=== PATIENT | male | born 1950 | race Caucasian/White ===

== ENCOUNTER 2021-09-17 13:41 | Inpatient (IN) | payer MEDICARE, OTHER, SELFPAY ==
[2021-09-17] MEDS ORDERED: Iopamidol 300 61% 100 ML VIAL FS ONE (14:11)
[2021-09-17] MEDS ORDERED: Ondansetron PF 4 MG/2 ML Vial ONE ×2 (14:25→20:24)
[2021-09-17] MEDS ORDERED: Morphine 4 MG/ML VIAL ONE (15:25)
[2021-09-17] MEDS ORDERED: Metoclopramide HCl 10 MG/2 ML VIAL ONE (15:26)
[2021-09-17] MEDS ORDERED: Ketorolac Tromethamine 30 MG/ML VIAL ONE ×2 (15:26→22:06)
[2021-09-17 15:59] LABS: Hemoglobin 14.7 g/dL (13.5-17.5); Mean Corpuscular HGB CONC 35.4 g/dL (32.0-36.0); Mean Corpuscular Volume 90.4 fl (81.2-95.1); Mean Platelet Volume 9.9 fl (7.4-10.4); Platelet Count 156 10x3/uL (150-450); RBC Distribution Width 13.3 % (11.5-14.5); Red Blood Cell (RBC) Count 4.59 10x6/uL (4.32-5.72); White Blood Cell (WBC) Count 6.5 10x3/uL (3.5-10.5)
[2021-09-17 16:00] LABS: MDiff Complete? YES
[2021-09-17 16:20] LABS: ALT (SGPT) 44 U/L (8-55); AST (SGOT) 61 U/L (5-34); Albumin 4.1 g/dL (3.4-4.8); Alkaline Phosphatase 66 U/L (40-110); Anion Gap 15 mmol/L (10-20); BUN (Urea Nitrogen) 13 mg/dL (8.4-25.7); Bilirubin, Total 0.6 mg/dL (0.2-1.2); Calc. Creatinine Clearance 0 mL/min (70-130); Calcium 9.6 mg/dL (7.8-10.44); Carbon Dioxide 25 mmol/L (23-31); Chloride 101 mmol/L (98-107); Globulin 3.1 g/dL (2.4-3.5); Glucose 100 mg/dL (80-115); Potassium 3.2 mmol/L (3.5-5.1); Protein, Total 7.2 g/dL (5.8-8.1); Sodium 138 mmol/L (136-145)
[2021-09-17] MEDS ORDERED: Dicyclomine 20 MG/2 ML VIAL ONE (16:38)
[2021-09-17 16:39] LABS: Bilirubin Neg (Negative); Blood, Urine 250 (Negative); Clarity Clear (Clear); Glucose, Urine (Dipstick) Normal (Negative); Ketone, Urine 50 mg/dL (Negative); Leukocyte Negative (Negative); Nitrite Negative (Negative); Protein, Urine (Dipstick) 30 mg/dl (Neg-Trace); Specific Gravity, Urine 1.015 (1.002-1.036); Urobilinogen Normal mg/dL (Less than 2); pH, Urine 6.5 (5.0-9.0)
[2021-09-17 16:46] LABS: Bacteria/HPF None Seen HPF (None Seen); Squamous Epithelial 0-3 HPF (0-3); WBC/HPF 0-3 HPF (0-3)
[2021-09-17 16:50] LABS: Eosinophils 1 % (0-10)
[2021-09-17 16:53] LABS: Lymphocytes 20 % (21-51); Monocytes 17 % (0-10); Neutrophil 61 % (42-75)
[2021-09-17 16:54] LABS: Vacuoles SLIGHT
[2021-09-17] MEDS ORDERED: Simethicone Chewable 80 MG TAB PO SCH (17:00)
[2021-09-17] MEDS ORDERED: Bupivacaine PF 0.5% 30 ML VIAL ONE (19:58)
[2021-09-17] MEDS ORDERED: CEFAZOLIN 1 GM VIAL ONE (19:59)
[2021-09-17] MEDS ORDERED: EPINEPHrine 1 MG/ML AMP ONE (20:00)
[2021-09-17 20:01] LABS: SARS-CoV-2 NAA Rapid Test DETECTED (NotDetected)
[2021-09-17] MEDS ORDERED: Fentanyl 100 MCG/2 ML VIAL ONE ×2 (20:23→21:58)
[2021-09-17] MEDS ORDERED: PROPOFOL 20 ML ONE (20:23)
[2021-09-17] MEDS ORDERED: Lidocaine 1% PF 5 ML VIAL ONE (20:24)
[2021-09-17] MEDS ORDERED: Dexamethasone 20 MG/5 ML VIAL ONE (20:26)
[2021-09-17] MEDS ORDERED: Succinylcholine 200 MG/10 ml SYRINGE FS ONE (20:26)
[2021-09-17] MEDS ORDERED: Water For Injection,Sterile 20 ML ONE (20:29)
[2021-09-17] MEDS ORDERED: Glycopyrrolate 0.2 MG/ML 5 ML SYRINGE ONE (22:05)
[2021-09-17] MEDS ORDERED: Ondansetron PF 4 MG/2 ML Vial IVP PRN (22:33)
[2021-09-17] MEDS ORDERED: Morphine 2 MG/ML VIAL SLOW IVP PRN (22:37)
[2021-09-17] MEDS ORDERED: diphenhydrAMINE 50 MG/ML VIAL IVP PRN (22:38)
[2021-09-17] MEDS ORDERED: Piperacillin/Tazobactam 3.375 GM in Sodium Chloride 0.9% 100 ML IVPB SCH (22:45)
[2021-09-17] MEDS: Lactated Ringer's 1,000 ML IV SCH (23:22)
[2021-09-17] MEDS: Ketorolac Tromethamine 30 MG/ML VIAL IVP SCH (23:23)
[2021-09-18] MEDS: Morphine 4 MG/ML VIAL SLOW IVP PRN ×3 (01:35→21:08)
[2021-09-18 04:55] LABS: Anion Gap 20 mmol/L (10-20); BUN (Urea Nitrogen) 10 mg/dL (8.4-25.7); Calc. Creatinine Clearance 125 mL/min (70-130); Calcium 8.4 mg/dL (7.8-10.44); Carbon Dioxide 20 mmol/L (23-31); Chloride 106 mmol/L (98-107); Glucose 115 mg/dL (80-115); Potassium 3.7 mmol/L (3.5-5.1); Sodium 142 mmol/L (136-145)
[2021-09-18] MEDS: Piperacillin/Tazobactam 3.375 GM in Sodium Chloride 0.9% 100 ML IVPB SCH ×3 (06:01→21:06)
[2021-09-18] MEDS: Ketorolac Tromethamine 30 MG/ML VIAL IVP SCH ×3 (06:01→17:13)
[2021-09-18] MEDS: Lactated Ringer's 1,000 ML IV SCH ×3 (07:54→21:06)
[2021-09-18] MEDS: Enoxaparin Sodium 40 MG/0.4 ML SYRINGE SC SCH (08:48)
[2021-09-18] MEDS ORDERED: Lactated Ringer's 1,000 ML IV SCH (09:00)
[2021-09-18] MEDS: Hydroxychloroquine Sulfate 200 MG TAB PO SCH ×2 (09:32→21:07)
[2021-09-18] MEDS ORDERED: Dexamethasone 0.5 MG/5 ML UDCUP PO SCH (17:00)
[2021-09-18] MEDS: Gabapentin 300 MG CAP PO SCH (21:07)
[2021-09-19] MEDS: Ketorolac Tromethamine 30 MG/ML VIAL IVP SCH ×4 (00:36→17:58)
[2021-09-19 04:43] LABS: Anion Gap 14 mmol/L (10-20); BUN (Urea Nitrogen) 18 mg/dL (8.4-25.7); Calc. Creatinine Clearance 105 mL/min (70-130); Carbon Dioxide 27 mmol/L (23-31); Chloride 102 mmol/L (98-107); Glucose 130 mg/dL (80-115); Magnesium 1.8 mg/dL (1.6-2.6); Phosphorus 2.9 mg/dL (2.3-4.7); Potassium 3.8 mmol/L (3.5-5.1); Sodium 139 mmol/L (136-145)
[2021-09-19 05:20] VITALS: BMI 25.7
[2021-09-19] MEDS: Piperacillin/Tazobactam 3.375 GM in Sodium Chloride 0.9% 100 ML IVPB SCH ×3 (06:23→21:40)
[2021-09-19] MEDS: Lactated Ringer's 1,000 ML IV SCH (06:39)
[2021-09-19] MEDS ORDERED: 1/2 NS w/KCL 20 mEq 1,000 ML IV SCH (08:30)
[2021-09-19] MEDS: Hydroxychloroquine Sulfate 200 MG TAB PO SCH ×2 (08:54→21:39)
[2021-09-19] MEDS: Enoxaparin Sodium 40 MG/0.4 ML SYRINGE SC SCH (08:54)
[2021-09-19] MEDS: 1/2 NS w/KCL 20 mEq 1,000 ML IV SCH ×2 (08:54→21:40)
[2021-09-19 10:25] LABS: SARS-CoV-2 NAA Rapid Test DETECTED (NotDetected)
[2021-09-19] MEDS: Gabapentin 300 MG CAP PO SCH (21:39)
[2021-09-19] MEDS: Morphine 4 MG/ML VIAL SLOW IVP PRN (21:44)
[2021-09-20] MEDS: Ketorolac Tromethamine 30 MG/ML VIAL IVP SCH ×2 (00:42→05:33)
[2021-09-20] MEDS: Piperacillin/Tazobactam 3.375 GM in Sodium Chloride 0.9% 100 ML IVPB SCH (05:34)
[2021-09-20] MEDS: Hydroxychloroquine Sulfate 200 MG TAB PO SCH (08:11)
[2021-09-20] MEDS: 1/2 NS w/KCL 20 mEq 1,000 ML IV SCH (08:11)
[2021-09-20] MEDS: Enoxaparin Sodium 40 MG/0.4 ML SYRINGE SC SCH (08:11)
[2021-09-20 11:32] VITALS: TEMP 98.3
[2021-09-20 12:20] VITALS: BP 143/89
== END 2021-09-20 13:16 | disposition home or self-care (01) | DRG 329 ==
LOC: CSHERS 13:41 → CSHICU 23:01 → CSHTELE 09-18 10:17
PROVIDERS: ADMIT Surgery; ATTEND Surgery
PROC: 0DJD4ZZ Inspection of Lower Intestinal Tract, Percutaneous Endoscopic Approach (ICD-10-PCS; principal; 2021-09-17)
PROC: 0DQ80ZZ Repair Small Intestine, Open Approach (ICD-10-PCS; 2021-09-17)
DX: K56.2 Volvulus (principal); U07.1 COVID-19; I73.9 Peripheral vascular disease, unspecified; K66.0 Peritoneal adhesions (postprocedural) (postinfection); M06.9 Rheumatoid arthritis, unspecified; E78.00 Pure hypercholesterolemia, unspecified; Z88.2 Allergy status to sulfonamides; Z87.891 Personal history of nicotine dependence; Z79.899 Other long term (current) drug therapy; Z79.82 Long term (current) use of aspirin; Z98.1 Arthrodesis status; Z98.890 Other specified postprocedural states; Z72.89 Other problems related to lifestyle; Z90.49 Acquired absence of other specified parts of digestive tract
CPT/HCPCS: 36415; 74177; 80048; 80053; 81003; 81015; 83605; 83690; 83735; 84100; 85025; C1765; J0171; J0500; J0690; J1100; J1650; J1885; J2270; J2405; J2543; J2704; J2765; J3010; J3480; J3490; J7120; J8540; Q9967; S0020; U0002

== ENCOUNTER 2022-04-22 08:06 | Outpatient (CLI) | payer MEDICARE | END 2022-04-22 08:07 | disposition home or self-care (01) | LOC: CSHWCC 08:06 | PROVIDERS: ATTEND Nurse Practitioner Family | DX: I87.313 Chronic venous hypertension (idiopathic) with ulcer of bilateral lower extremity (principal); L97.829 Non-pressure chronic ulcer of other part of left lower leg with unspecified severity; L97.819 Non-pressure chronic ulcer of other part of right lower leg with unspecified severity; R60.0 Localized edema ==

== ENCOUNTER 2022-05-06 08:24 | Outpatient (CLI) | payer MEDICARE | END 2022-05-06 08:25 | disposition home or self-care (01) | LOC: CSHWCC 08:24 | PROVIDERS: ATTEND Nurse Practitioner Family | DX: I87.312 Chronic venous hypertension (idiopathic) with ulcer of left lower extremity (principal); L97.829 Non-pressure chronic ulcer of other part of left lower leg with unspecified severity; I87.311 Chronic venous hypertension (idiopathic) with ulcer of right lower extremity; L97.819 Non-pressure chronic ulcer of other part of right lower leg with unspecified severity; R60.0 Localized edema | CPT/HCPCS: 99213; G0463 ==

== ENCOUNTER 2022-05-20 08:18 | Outpatient (CLI) | payer MEDICARE | END 2022-05-20 08:19 | disposition home or self-care (01) | LOC: CSHWCC 08:18 | PROVIDERS: ATTEND Nurse Practitioner Family | DX: I87.312 Chronic venous hypertension (idiopathic) with ulcer of left lower extremity (principal); L97.829 Non-pressure chronic ulcer of other part of left lower leg with unspecified severity; I87.311 Chronic venous hypertension (idiopathic) with ulcer of right lower extremity; L97.819 Non-pressure chronic ulcer of other part of right lower leg with unspecified severity; R60.0 Localized edema ==

== ENCOUNTER 2022-06-03 08:09 | Outpatient (CLI) | payer MEDICARE | END 2022-06-03 08:10 | disposition home or self-care (01) | LOC: CSHWCC 08:09 | PROVIDERS: ATTEND Nurse Practitioner Family | DX: I87.312 Chronic venous hypertension (idiopathic) with ulcer of left lower extremity (principal); L97.829 Non-pressure chronic ulcer of other part of left lower leg with unspecified severity; I87.311 Chronic venous hypertension (idiopathic) with ulcer of right lower extremity; L97.819 Non-pressure chronic ulcer of other part of right lower leg with unspecified severity; R60.0 Localized edema ==

== ENCOUNTER 2022-06-10 08:10 | Outpatient (CLI) | payer MEDICARE | END 2022-06-10 08:11 | disposition home or self-care (01) | LOC: CSHWCC 08:10 | PROVIDERS: ATTEND Nurse Practitioner Family | DX: I87.313 Chronic venous hypertension (idiopathic) with ulcer of bilateral lower extremity (principal); L97.819 Non-pressure chronic ulcer of other part of right lower leg with unspecified severity; L97.829 Non-pressure chronic ulcer of other part of left lower leg with unspecified severity; R60.0 Localized edema | CPT/HCPCS: 97139; G0463; 99213 ==

== ENCOUNTER 2022-06-24 13:02 | Outpatient (CLI) | payer MEDICARE | END 2022-06-24 13:03 | disposition home or self-care (01) | LOC: CSHWCC 13:02 | PROVIDERS: ATTEND Nurse Practitioner Family | DX: I87.313 Chronic venous hypertension (idiopathic) with ulcer of bilateral lower extremity (principal); L97.819 Non-pressure chronic ulcer of other part of right lower leg with unspecified severity; L97.829 Non-pressure chronic ulcer of other part of left lower leg with unspecified severity; R60.0 Localized edema | CPT/HCPCS: 97139; G0463; 99214 ==

== ENCOUNTER 2022-07-08 10:18 | Outpatient (CLI) | payer MEDICARE | END 2022-07-08 10:19 | disposition home or self-care (01) | LOC: CSHWCC 10:18 | PROVIDERS: ATTEND Nurse Practitioner Family | DX: I87.313 Chronic venous hypertension (idiopathic) with ulcer of bilateral lower extremity (principal); L97.819 Non-pressure chronic ulcer of other part of right lower leg with unspecified severity; L97.829 Non-pressure chronic ulcer of other part of left lower leg with unspecified severity ==

== ENCOUNTER 2022-07-15 15:14 | Outpatient (CLI) | payer MEDICARE | END 2022-07-15 15:15 | disposition home or self-care (01) | LOC: CSHWCC 15:14 | PROVIDERS: ATTEND Nurse Practitioner Family | DX: I87.313 Chronic venous hypertension (idiopathic) with ulcer of bilateral lower extremity (principal); L97.819 Non-pressure chronic ulcer of other part of right lower leg with unspecified severity; L97.829 Non-pressure chronic ulcer of other part of left lower leg with unspecified severity; R60.0 Localized edema ==

== ENCOUNTER 2022-07-28 08:05 | Outpatient (CLI) | payer MEDICARE | END 2022-07-28 08:06 | disposition home or self-care (01) | LOC: CSHWCC 08:05 | PROVIDERS: ATTEND Nurse Practitioner Family | DX: I87.313 Chronic venous hypertension (idiopathic) with ulcer of bilateral lower extremity (principal); L97.829 Non-pressure chronic ulcer of other part of left lower leg with unspecified severity; L97.819 Non-pressure chronic ulcer of other part of right lower leg with unspecified severity; R60.0 Localized edema | CPT/HCPCS: 29581 ==

== ENCOUNTER 2022-08-11 08:08 | Outpatient (CLI) | payer MEDICARE | END 2022-08-11 08:09 | disposition home or self-care (01) | LOC: CSHWCC 08:08 | PROVIDERS: ATTEND Nurse Practitioner Family | DX: I87.312 Chronic venous hypertension (idiopathic) with ulcer of left lower extremity (principal); L97.829 Non-pressure chronic ulcer of other part of left lower leg with unspecified severity; R60.0 Localized edema | CPT/HCPCS: 29581; 99213; G0463 ==

== ENCOUNTER 2022-09-02 09:14 | Outpatient (CLI) | payer MEDICARE | END 2022-09-02 09:15 | disposition home or self-care (01) | LOC: CSHWCC 09:14 | PROVIDERS: ATTEND Nurse Practitioner Family | DX: I87.313 Chronic venous hypertension (idiopathic) with ulcer of bilateral lower extremity (principal); L97.819 Non-pressure chronic ulcer of other part of right lower leg with unspecified severity; L97.829 Non-pressure chronic ulcer of other part of left lower leg with unspecified severity | CPT/HCPCS: 15271; 29581 ×2; 97139; Q4101 ×2 ==

== ENCOUNTER 2022-09-06 13:03 | Outpatient (CLI) | payer MEDICARE | END 2022-09-06 13:04 | disposition home or self-care (01) | LOC: CSHWCC 13:03 | PROVIDERS: ATTEND Nurse Practitioner Family | DX: I87.313 Chronic venous hypertension (idiopathic) with ulcer of bilateral lower extremity (principal); L97.819 Non-pressure chronic ulcer of other part of right lower leg with unspecified severity; L97.829 Non-pressure chronic ulcer of other part of left lower leg with unspecified severity; R60.0 Localized edema | CPT/HCPCS: 29581 ==

== ENCOUNTER 2022-09-09 09:18 | Outpatient (CLI) | payer MEDICARE | END 2022-09-09 09:19 | disposition home or self-care (01) | LOC: CSHWCC 09:18 | PROVIDERS: ATTEND Nurse Practitioner Family | DX: I87.312 Chronic venous hypertension (idiopathic) with ulcer of left lower extremity (principal); L97.829 Non-pressure chronic ulcer of other part of left lower leg with unspecified severity; I87.311 Chronic venous hypertension (idiopathic) with ulcer of right lower extremity; L97.819 Non-pressure chronic ulcer of other part of right lower leg with unspecified severity; R60.0 Localized edema | CPT/HCPCS: 97139; G0463; 99214 ==

== ENCOUNTER 2022-09-22 08:03 | Outpatient (CLI) | payer MEDICARE | END 2022-09-22 08:04 | disposition home or self-care (01) | LOC: CSHWCC 08:03 | PROVIDERS: ATTEND Nurse Practitioner Family | DX: I87.313 Chronic venous hypertension (idiopathic) with ulcer of bilateral lower extremity (principal); L97.829 Non-pressure chronic ulcer of other part of left lower leg with unspecified severity; L97.819 Non-pressure chronic ulcer of other part of right lower leg with unspecified severity; R60.0 Localized edema | CPT/HCPCS: 97139; G0463; 99213 ==

== ENCOUNTER 2022-10-06 08:05 | Outpatient (CLI) | payer MEDICARE | END 2022-10-06 08:06 | disposition home or self-care (01) | LOC: CSHWCC 08:05 | PROVIDERS: ATTEND Nurse Practitioner Family | DX: I87.312 Chronic venous hypertension (idiopathic) with ulcer of left lower extremity (principal); L97.829 Non-pressure chronic ulcer of other part of left lower leg with unspecified severity; I87.311 Chronic venous hypertension (idiopathic) with ulcer of right lower extremity; L97.819 Non-pressure chronic ulcer of other part of right lower leg with unspecified severity; R60.0 Localized edema | CPT/HCPCS: 97139; G0463; 17250; 99211 ==

== ENCOUNTER 2022-10-13 08:06 | Outpatient (CLI) | payer MEDICARE | END 2022-10-13 08:07 | disposition home or self-care (01) | LOC: CSHWCC 08:06 | PROVIDERS: ATTEND Nurse Practitioner Family | DX: I87.313 Chronic venous hypertension (idiopathic) with ulcer of bilateral lower extremity (principal); L97.819 Non-pressure chronic ulcer of other part of right lower leg with unspecified severity; L97.829 Non-pressure chronic ulcer of other part of left lower leg with unspecified severity | CPT/HCPCS: 97139; G0463; 99213 ==

== ENCOUNTER 2022-11-03 08:06 | Outpatient (CLI) | payer MEDICARE | END 2022-11-03 08:07 | disposition home or self-care (01) | LOC: CSHWCC 08:06 | PROVIDERS: ATTEND Nurse Practitioner Family | DX: I87.313 Chronic venous hypertension (idiopathic) with ulcer of bilateral lower extremity (principal); L97.819 Non-pressure chronic ulcer of other part of right lower leg with unspecified severity; L97.829 Non-pressure chronic ulcer of other part of left lower leg with unspecified severity; R60.0 Localized edema | CPT/HCPCS: 99213; G0463 ==

== ENCOUNTER 2022-11-17 11:09 | Outpatient (CLI) | payer MEDICARE | END 2022-11-17 11:10 | disposition home or self-care (01) | LOC: CSHWCC 11:09 | PROVIDERS: ATTEND Nurse Practitioner Family | DX: I87.313 Chronic venous hypertension (idiopathic) with ulcer of bilateral lower extremity (principal); L97.819 Non-pressure chronic ulcer of other part of right lower leg with unspecified severity; L97.829 Non-pressure chronic ulcer of other part of left lower leg with unspecified severity; R60.0 Localized edema | CPT/HCPCS: 97602 ==

== ENCOUNTER 2022-12-01 08:18 | Outpatient (CLI) | payer MEDICARE | END 2022-12-01 08:19 | disposition home or self-care (01) | LOC: CSHWCC 08:18 | PROVIDERS: ATTEND Nurse Practitioner Family | DX: I87.313 Chronic venous hypertension (idiopathic) with ulcer of bilateral lower extremity (principal); L97.829 Non-pressure chronic ulcer of other part of left lower leg with unspecified severity; L97.819 Non-pressure chronic ulcer of other part of right lower leg with unspecified severity; R60.0 Localized edema | CPT/HCPCS: 97602 ==

== ENCOUNTER 2023-12-16 08:05 | Outpatient (CLI) | payer MEDICARE | END 2023-12-16 08:06 | disposition home or self-care (01) | LOC: CSHWCC 08:05 | PROVIDERS: ATTEND Nurse Practitioner Family | DX: I87.313 Chronic venous hypertension (idiopathic) with ulcer of bilateral lower extremity (principal); L97.212 Non-pressure chronic ulcer of right calf with fat layer exposed; L97.222 Non-pressure chronic ulcer of left calf with fat layer exposed; I73.9 Peripheral vascular disease, unspecified | CPT/HCPCS: 97597; 99213; G0463 ==

== ENCOUNTER 2023-12-22 10:34 | Outpatient (CLI) | payer MEDICARE | END 2023-12-22 10:35 | disposition home or self-care (01) | LOC: CSHWCC 10:34 | PROVIDERS: ATTEND Nurse Practitioner Family | DX: I87.313 Chronic venous hypertension (idiopathic) with ulcer of bilateral lower extremity (principal); L97.212 Non-pressure chronic ulcer of right calf with fat layer exposed; L97.222 Non-pressure chronic ulcer of left calf with fat layer exposed; I73.9 Peripheral vascular disease, unspecified | CPT/HCPCS: 97597 ==

== ENCOUNTER 2024-01-06 08:30 | Outpatient (CLI) | payer MEDICARE | END 2024-01-06 08:31 | disposition home or self-care (01) | LOC: CSHWCC 08:30 | PROVIDERS: ATTEND Nurse Practitioner Family | DX: I87.313 Chronic venous hypertension (idiopathic) with ulcer of bilateral lower extremity (principal); L97.212 Non-pressure chronic ulcer of right calf with fat layer exposed; L97.222 Non-pressure chronic ulcer of left calf with fat layer exposed; C44.719 Basal cell carcinoma of skin of left lower limb, including hip; C44.712 Basal cell carcinoma of skin of right lower limb, including hip; I73.9 Peripheral vascular disease, unspecified | CPT/HCPCS: 99213; G0463 ==

== ENCOUNTER 2024-01-13 09:26 | Outpatient (CLI) | payer MEDICARE | END 2024-01-13 09:27 | disposition home or self-care (01) | LOC: CSHWCC 09:26 | PROVIDERS: ATTEND Nurse Practitioner Family | DX: I87.313 Chronic venous hypertension (idiopathic) with ulcer of bilateral lower extremity (principal); L97.212 Non-pressure chronic ulcer of right calf with fat layer exposed; L97.222 Non-pressure chronic ulcer of left calf with fat layer exposed; I73.9 Peripheral vascular disease, unspecified; C44.719 Basal cell carcinoma of skin of left lower limb, including hip; C44.712 Basal cell carcinoma of skin of right lower limb, including hip | CPT/HCPCS: 97597 ==

== ENCOUNTER 2024-05-01 08:58 | Outpatient (CLI) | payer MEDICARE | END 2024-05-01 08:59 | disposition home or self-care (01) | LOC: CSHWCC 08:58 | PROVIDERS: ATTEND Nurse Practitioner Family | DX: S81.801D Unspecified open wound, right lower leg, subsequent encounter (principal); S81.802D Unspecified open wound, left lower leg, subsequent encounter; L97.522 Non-pressure chronic ulcer of other part of left foot with fat layer exposed; I73.9 Peripheral vascular disease, unspecified; Z85.828 Personal history of other malignant neoplasm of skin | CPT/HCPCS: 17250; 97605; G0463; 99215 ==

== ENCOUNTER 2024-05-04 11:08 | Outpatient (CLI) | payer MEDICARE | END 2024-05-04 11:09 | disposition home or self-care (01) | LOC: CSHWCC 11:08 | PROVIDERS: ATTEND Nurse Practitioner Family | DX: S81.801D Unspecified open wound, right lower leg, subsequent encounter (principal); S81.802D Unspecified open wound, left lower leg, subsequent encounter; L97.522 Non-pressure chronic ulcer of other part of left foot with fat layer exposed; I73.9 Peripheral vascular disease, unspecified; Z85.828 Personal history of other malignant neoplasm of skin | CPT/HCPCS: 99215; G0463 ==